=== PATIENT | male | born 1965 | race Caucasian/White ===

== ENCOUNTER 2016-11-01 02:18 | Emergency (ER) | payer MEDICAID ==
[2016-11-01 02:32] VITALS: BP 137/90
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
[2016-11-01] MEDS ORDERED: Cyclobenzaprine 10 MG Tab PO ONE (04:07)
[2016-11-01] MEDS ORDERED: Acetaminophen/oxyCODONE 325-5 MG Tab PO ONE (04:07)
--- NOTE | 2016-11-02 09:35 | CT ---
CT cervical spine Technique: Multiple axial sections through the cervical spine were obtained. Reconstructed coronal images and sagittal images were obtained. Imaging was obtained from above C1 inferiorly through the T1 level. Comparison: No previous cervical spine imaging. Findings: Fairly severe disc space narrowing is noted at C6-C7. Minimal spondylolisthesis noted at C5-C6 compatible with degenerative apophyseal change. Anterior endplate osteophytes at C4-C5 through C6-C7. Slight posterior ridging noted at C4-C5 and more prominently at C6-C7. Mild disc space narrowing noted C4-C5. Visualized mastoid sinuses and middle ear cavities are clear. Posterior skull base is intact. Vertebral bodies and posterior arches are intact. No fracture is seen. Moderate right sided neural foraminal stenosis noted at C6-C7. There is epidural air present compatible with annular rupture or with air escaping from the vertebral disc. Moderate left-sided neural foraminal stenosis noted at C5-C6 with mild right-sided neural foraminal stenosis noted at C5-C6. Mild bilateral neural foraminal stenosis noted C4-C5. No abnormal subluxation is seen. Mild degenerative spurring seen within the uncovertebral joints most prominent at C6-C7. Impression: 1. Degenerative change as noted above. Nothing acute is seen on CT study of the cervical spine. Diagnostic code #3 Agree with preliminary report issued by [facility] ([facility] preliminary report dictated on 11/01/16, 4:24 AM Central Time)
--- NOTE | 2016-11-02 09:35 | CT ---
CT lumbar spine Technique: Multiple axial sections through the lumbar spine were obtained. Reconstructed coronal and sagittal images were reviewed. Comparison: No previous lumbar spine imaging. Findings: Mild posterior disc space narrowing noted at L4-L5. Severe disc space narrowing noted at L5-S1 with vacuum phenomena. Circumferential disc bulge noted at L4-L5. Moderately severe degenerative apophyseal changes seen. Findings cause a moderate degree of central canal stenosis. No other levels of central canal stenosis are seen. No fracture is identified. No abnormal subluxation is seen. Impression: 1. Degenerative change at L4-L5 and L5-S1 as described above. 2. Nothing acute is appreciated on CT study of the lumbar spine. Diagnostic code #3 Agree with preliminary report issued by [facility] ([facility] preliminary report dictated on 11/01/16, 4:28 AM Central Time)
--- NOTE | 2016-11-02 09:35 | CT ---
CT thoracic spine. Technique: Multiple axial sections through the thoracic spine were obtained. Reconstructed sagittal and coronal images were reviewed. Comparison: No previous thoracic spine imaging. Findings: Scattered disc space narrowing seen within the thoracic spine. Mild scattered anterior and lateral endplate osteophytes are seen. No bony central canal stenosis or bony neural foraminal stenosis is seen. No fracture is identified. No abnormal subluxation is seen. Impression: 1. Mild scattered degenerative change. 2. Nothing acute is appreciated on CT study of the thoracic spine. Diagnostic code #2 Agree with preliminary report issued by [facility] ([facility] preliminary report dictated on 11/01/16, 4:25 AM Central Time)
== END 2016-11-01 04:38 | disposition home or self-care (01) ==
LOC: JD.ED 02:18
DX: S39.012A Strain of muscle, fascia and tendon of lower back, initial encounter (principal); S16.1XXA Strain of muscle, fascia and tendon at neck level, initial encounter; S29.012A Strain of muscle and tendon of back wall of thorax, initial encounter; F17.210 Nicotine dependence, cigarettes, uncomplicated; Z98.890 Other specified postprocedural states; Z88.6 Allergy status to analgesic agent; V50.6XXA Passenger in pick-up truck or van injured in collision with pedestrian or animal in traffic accident, initial encounter; Y92.410 Unspecified street and highway as the place of occurrence of the external cause
CPT/HCPCS: 72125; 72128; 72131; 99284; A9270